=== PATIENT | female | born 1980 | race Caucasian/White ===

== ENCOUNTER 2018-06-01 10:39 | Emergency (ER) | payer OTHER, SELFPAY ==
[2018-06-01 10:41] VITALS: BP 130/67; PULSE 102; RESP 18; TEMP 36.6; O2SAT 99; BMI 24.7
--- NOTE | 2018-06-01 10:57 | RAD_ITS ---
STUDY: X-RAY - LUMBAR SPINE REASON FOR EXAM: Female, 37 years old. Patient fell last week. Low back pain radiating to the left leg. TECHNIQUE: 3 view(s) of the lumbar spine were obtained. COMPARISON: None FINDINGS: There is straightening of the normal lumbar lordosis. There is no substantial scoliosis. There is a normal alignment of the vertebrae. There is multilevel endplate spondylosis of the lumbar vertebrae. The vertebral heights are within normal limits. There are Schmorl's nodes in the superior endplates at all levels. Normal disc space heights. There is no demonstrated fracture. There is no demonstrated spondylolysis of the pars interarticulares. The soft tissue structures are unremarkable. RAD/Lumbar Spine 2 or 3 Views IMPRESSION: 1. Straightening of the lumbar spine which could be due to muscle spasm. 2. Schmorl's nodes at multiple levels. 3. No demonstrated acute fracture. Electronically Signed: Asaf Walker MD at 11:22 EST Tel , Service support ,
[2018-06-01] MEDS: Acetaminophen 500 MG Tablet 1000 MG PO (11:02)
--- NOTE | 2018-06-01 12:21 | ED.VISSUMM ---
- ER Visit Summary Date of Service: 06/01/18 Chief Complaint: Back pain History of Present Illness: The patient is a 37 F with back pain that started 1.5 weeks ago. The patient stepped down from a curb and slipped. She complains of left back pain down into her left calf. Worse with certain positions after sleeping and standing. Pain is severe at times. No bowel or bladder symptoms. No weakness or numbness. Physical Examination: Afebrile and vital signs unremarkable except for heart rate of 102. Alert and oriented. Appears uncomfortable but not toxic or in distress. Lumbar spine is tender to palpation over the left side. Straight leg raise negative. Good strength and sensation. Test Results: X-rays show straightening of the lumbar spine concerning for spasm. She also has Schmorl's nodes and no fracture was noted. Emergency Department Course and Treatment: Patient treated with Tylenol as she is driving and has an hour anti-inflammatory drugs. X-rays as above. She may have a disc injury. She will be referred for outpatient follow-up. Muscle relaxers and pain medicine. Follow-up with primary care. Treatment Plan: As above Disposition: Discharge Impression: 1. Lumbar back pain This note was generated with [employer] software. It may contain incorrect words, spelling, and punctuation that were not noted in review of the chart prior to signing ED Disposition - Plan for ED Patient: Referrals: Tona Singh, SHERICE-C [Primary Care Provider] -
--- NOTE | 2018-06-01 12:25 | DCINST.ED_ITS ---
ED Disposition - Plan for ED Patient: Instructions: ED Sprain Strain Lumbar Prescriptions: Hydrocodone Bitart/Apap 5-325 [[place] 5MG-325MG] 1 tab PO Q6H PRN PRN 3 Days #10 tab PRN Reason: Pain Cyclobenzaprine [Flexeril] 10 mg PO TID PRN #20 tab PRN Reason: Muscle Spasm Referrals: Tona Singh, COPYING MACHINE MECHANIC-C [Primary Care Provider] -
[2018-06-01 12:43] VITALS: BP 121/77; PULSE 77; RESP 16; O2SAT 98
== END 2018-06-01 12:45 | disposition home or self-care (01) ==
LOC: ED 11:17
PROVIDERS: Emergency Provider Emergency Medicine; Family Provider Nurse Practitioner Family; PCP Nurse Practitioner Family
DX: M54.5 Low back pain (principal)
CPT/HCPCS: 72100; 99283

== ENCOUNTER 2018-12-29 12:46 | Emergency (ER) | payer OTHER, SELFPAY ==
[2018-12-29 12:46] VITALS: BP 151/111; PULSE 104; RESP 16; TEMP 35.9; O2SAT 96; BMI 23.0
--- NOTE | 2018-12-29 12:58 | CT_ITS ---
STUDY: CT ABDOMEN AND PELVIS WITHOUT CONTRAST REASON FOR EXAM: Female, 38 years old. Right lower quadrant pain. RADIATION DOSAGE (If Supplied By Facility): CTDIvol = ( 6.06 ) mGy, DLP = ( 276.88 ) mGycm TECHNIQUE: Transaxial images were obtained from the dome of the diaphragm to the symphysis pubis without oral contrast, and without intravenous contrast. Sagittal and coronal images were reconstructed. Individualized dose optimization techniques were used for this CT. COMPARISON: Comparison is made with prior study July 15, 2015. FINDINGS: Minimal degree of dependent bibasilar atelectasis. The visualized portions of the heart are within normal limits. Normal liver. Normal gallbladder and extrahepatic biliary system. Normal spleen. Normal pancreas. Normal bilateral adrenal glands. Normal right kidney. Normal left kidney. Normal visualized stomach. Normal small intestine. Scattered right colonic diverticula. Inspissated barium is seen in 2 diverticula in the right hemicolon. Multiple small lymph nodes are seen in the mesentery in the right lower quadrant this may represent mesenteric metastases. The appendix is visualized and appears normal. There is scattered atherosclerotic calcification of the abdominal aorta, without a demonstrated aneurysm. Normal inferior vena cava. Normal retroperitoneum. Normal urinary bladder. There is absence of the uterus consistent with a prior hysterectomy. Calcified phleboliths are seen in the pelvis. There is a small umbilical hernia containing fat. Normal osseous structures. CT/Abdomen/Pelvis without Cont IMPRESSION: Scattered diverticula in the right hemicolon. Mesenteric adenitis in the right lower quadrant. Electronically Signed: Lavell Deng, at 13:53 EDT , Service support ,
[2018-12-29 13:25] LABS: Absolute Lymphocyte Count 2.43 X10^3/uL (0.83-4.51); Basophil# 0.06 X10^3/uL; Basophil% 0.5 % (0-1); Eosinophil# 0.04 X10^3/uL; Eosinophils% 0.3 % (0-5); Hematocrit 43.5 % (37-47); Hemoglobin 14.9 g/dL (12.0-15.0); Lymphocyte # 2.43 X10^3/ul (4.0); Mean Corp Hgb Conc 34.3 g/dL (32-36); Mean Corpuscular Hgb 30.8 pg (27.0-32.0); Mean Corpuscular Volume 89.9 fL (81-99); Mean Platelet Vol. 9.3 fl (6.2-12.0); Monocyte# 0.52 X10^3/uL; Monocyte% 4.3 % (0-10); NRBC Flagged by Analyzer 0 % (0-5); Neutrophil # 9.03 X10^3/uL (2.7-7.7); Neutrophil % 74.6 % (47-70); Platelet Count 290 K/mm3 (150-450); RBC Distribution Width CV 12.8 % (11.6-14.6); Red Blood Count 4.84 M/mm3 (4.2-5.4); White Blood Count 12.1 K/mm3 (4.4-11.0)
[2018-12-29 13:33] LABS: BUN 9 mg/dL (7-18); Creatinine, Serum 0.75 mg/dL (0.55-1.02); Glucose 156 mg/dL (74-106)
[2018-12-29 13:34] LABS: Anion Gap 6 (5-15); Calcium,Total 9.5 mg/dL (8.5-10.1); Chloride 108 mmol/L (98-107); EST Glomerular Filtration Rate 92 mL/min (>60); Est Glom Filt Rate - Afr Amer 112 mL/min (>60); Estimated Creatinine Clearance 84.13 ml/min; Potassium 3.6 mmol/L (3.5-5.1); Sodium Level 139 mmol/L (136-145)
[2018-12-29] MEDS: 0.9% Normal Saline 1,000 ML 125 ML IV (14:46)
[2018-12-29] MEDS: Ketorolac 30 MG/ML Syringe IV (14:46)
[2018-12-29 14:50] LABS: Bacteria 0 SEEN /hpf (None Seen); Mucous, Urine 0 SEEN /hpf (<or=2+); Red Blood Cells-Urine 0 SEEN /hpf (0-5); White Blood Cells 0 SEEN /hpf (0-5)
[2018-12-29 14:53] LABS: Color, Urine Yellow (Yellow); Glucose, Dipstick Normal (Normal); Ketone-Dipstick Negative (Negative); Leukocyte Esterase-Dipstick Negative /ul (Negative); Nitrite-Dipstick Negative (Negative); Occult Blood-Urine 50 /ul (Negative); Protein-Dipstick Negative (Negative); Specific Gravity, Urine 1.005 (1.002-1.030); Urine Bilirubin Dipstick Negative (Negative); Urine Clarity Clear (Clear); Urine Urobilinogen Normal (Normal)
[2018-12-29 14:59] LABS: Squamous Epithelial Cells - UA 0-5 SEEN /hpf (5-10)
--- NOTE | 2018-12-29 15:16 | ED.DCSUM_ITS ---
- ER Visit Summary Date of Service: 12/29/18 Chief Complaint: [Abdominal pain] History of Present Illness: The patient is a 38 F [presents to the emergency department complaint of abdominal pain for the last 5 months. Patient states that she initially had the pain 5 months ago and lasted about 24 hours and then resolved. Patient started having more pain again yesterday and has been relatively intermittent and lasts about a minute at a time. Patient describes it as sharp and stabbing. Patient also will have pain into her back at times. Patient states that is worse with walking. She had no nausea or vomiting. She denies any diarrhea. She denies any blood in her stool or black tarry stool. Patient's had prior appendectomy as well as hysterectomy and she believes that she still has 1 of her ovaries but is not sure which side.] Physical Examination: [HEENT-PERRLA, EOMI. Cranial nerves II through XII grossly intact. TMs clear. Mucous membranes moist. No adenopathy. Cardiovascular-regular rate and rhythm without murmur or ectopy Lungs-clear to auscultation, chest wall stable without crepitus or subcu emphysema Abdomen-normoactive bowel sounds, soft. Patient has tenderness palpation over the right lower abdomen into the right lower pelvis. There is no masses palpated. No rebound, rigidity, cranial signs. Patient has some mild CVA tenderness on the right. Extremities-intact ?4, normal range of motion, normal pulses, atraumatic] Test Results: [CBC with differential shows a white count 12.1, hemoglobin 14.9, hematocrit 43.5, placed 290. Chemistries unremarkable. Urinalysis was normal. CT scan of the abdomen pelvis without contrast showed mesenteric adenitis to the right lower quadrant otherwise nothing significant.] Emergency Department Course and Treatment: [She was medicated with Toradol 30 mill grams IV which really seem to improve her discomfort.] Treatment Plan: [Advised use ibuprofen or Tylenol for discomfort. Patient to follow-up with her primary care physician or PAYROLL AUDITOR within next 3 to 5 days. Patient advised to return if worsening pain, fever, vomiting, or conditions worsen anyway.] Disposition: [Discharged home in stable condition.] Impression: [Abdominal pain-etiology uncertain Mesenteric adenitis] This note was generated with [employer] software. It may contain incorrect words, spelling, and punctuation that were not noted in review of the chart prior to signing ED Disposition - Plan for ED Patient: Referrals: Tona Singh, DRUM REEL CUTTER-C [Primary Care Provider] -
--- NOTE | 2018-12-29 15:19 | ED.DEP ---
ED Disposition - Plan for ED Patient: Instructions: ABDOMINAL PAIN, Unknown Cause, (Female), Adenitis, Mesenteric Referrals: Tona Singh NP-[facility] [Primary Care Provider] - Onofre Webster MD [STAFF PHYSICIAN] - 3-5 Days
[2018-12-29 15:30] VITALS: BP 129/74; PULSE 61; RESP 15; O2SAT 98
== END 2018-12-29 15:31 | disposition home or self-care (01) ==
LOC: ED 13:31
PROVIDERS: Emergency Provider Emergency Medicine; Family Provider Nurse Practitioner Family; PCP Nurse Practitioner Family
DX: I88.0 Nonspecific mesenteric lymphadenitis (principal); R10.31 Right lower quadrant pain; Z72.0 Tobacco use
CPT/HCPCS: 74176; 80048; 81001; 85025; 96361; 96374; 99283; J7030; A4216

== ENCOUNTER 2019-01-15 11:50 | Emergency (ER) | payer OTHER, SELFPAY ==
[2019-01-15 11:50] VITALS: BP 127/76; PULSE 83; RESP 17; TEMP 36.7; O2SAT 99; BMI 23.8
[2019-01-15] MEDS: Ketorolac 60 MG/2 ML Vial IM (13:19)
--- NOTE | 2019-01-15 14:25 | ED.DEP ---
ED Disposition - Plan for ED Patient: Instructions: Neck Sprain/Strain Prescriptions: cycloBENZAPRine HCl [Flexeril] 10 mg PO TID PRN #20 tablet PRN Reason: Muscle Spasm Referrals: Tona Singh NP-C [Primary Care Provider] -
--- NOTE | 2019-01-15 14:31 | ED.DCSUM_ITS ---
- ER Visit Summary Date of Service: 01/15/19 Chief Complaint: Right-sided neck and shoulder pain History of Present Illness: The patient is a 38 F presenting with right-sided neck and right shoulder pain. This started yesterday. Patient does not recall a specific injury. She states she does a lot of heavy lifting at work. She also played baseball on Tuesday with her son. She tried ibuprofen at home. Denies other complaints. Physical Examination: Vitals are stable. Patient is afebrile. Alert no acute distress. HEENT exam is unremarkable. Neck is right paraspinal cervical muscle tenderness, no midline tenderness Lungs are clear and equal bilaterally. Heart is regular rate and rhythm. Abdomen is soft nontender nondistended. Extremities right posterior shoulder tenderness. Active full range of motion Skin is warm and dry. No focal neurologic deficit. Normal strength and sensation Remainder of exam is unremarkable. Emergency Department Course and Treatment: Patient was given Toradol IM. Given a prescription for Flexeril. She is advised to follow with her primary care physician. Advised return the ED if worsening complaints. Disposition: Discharge home Impression: Neck strain, right shoulder sprain This note was generated with [employer] dictation software. It may contain incorrect words, spelling, and punctuation that were not noted in review of the chart prior to signing ED Disposition - Plan for ED Patient: Instructions: Neck Sprain/Strain Prescriptions: cycloBENZAPRine HCl [Flexeril] 10 mg PO TID PRN #20 tab PRN Reason: Muscle Spasm Prescription Printed Referrals: Tona Singh, SHERICE-C [Primary Care Provider] -
[2019-01-15 14:41] VITALS: RESP 18
== END 2019-01-15 14:43 | disposition home or self-care (01) ==
LOC: ED 13:16
PROVIDERS: Emergency Provider Emergency Medicine; Family Provider Nurse Practitioner Family; PCP Nurse Practitioner Family
DX: S16.1XXA Strain of muscle, fascia and tendon at neck level, initial encounter (principal); S43.401A Unspecified sprain of right shoulder joint, initial encounter; Z72.0 Tobacco use; X58.XXXA Exposure to other specified factors, initial encounter; Y93.89 Activity, other specified; Y92.89 Other specified places as the place of occurrence of the external cause; Y99.8 Other external cause status
CPT/HCPCS: 96372; 99282

== ENCOUNTER 2021-12-17 16:49 | Emergency (ER) | payer OTHER, MEDICAID, SELFPAY ==
[2021-12-17 16:50] VITALS: BP 140/79; PULSE 77; RESP 14; TEMP 36.9; O2SAT 99; BMI 26.5
--- NOTE | 2021-12-17 17:15 | EX.ED.DYSGE1 ---
HPI <SYDNI Rangel - Last Filed: 12/17/21 17:20> History of Present Illness Chief Complaint: Dental Narrative Narrative: 41-year-old female presents to the emergency department with 2 to 3 days of left lower jaw pain following a fractured tooth. Patient states that she was eating something when she fractured her tooth last week. Over the last 2 to 3 days, the pain is getting worse, she is having worsening pain in her gums lower jaw all the way up to her ear. Patient did call her dentist however she has no appointment open until later in the month. Patient states due to the pain, she is here for evaluation. Denies any fevers or chills. Denies any drainage. PFSH <SYDNI Rangel - Last Filed: 12/17/21 17:20> PFSH Medical History no medical history Home Medications cyclobenzaprine 10 mg tablet 10 mg PO TID PRN Muscle Spasm #20 tabs 01/15/19 [Rx Last Taken Unknown] ibuprofen 600 mg tablet 600 mg PO Q6H PRN PRN pain #20 tabs 12/17/21 [Rx Last Taken Unknown] oxycodone-acetaminophen 5 mg-325 mg tablet (Percocet) 1 tab PO Q6H PRN pain 3 days #8 tabs 12/17/21 [Rx Last Taken Unknown] penicillin V potassium 500 mg tablet 500 mg PO 4X/DAY 7 days #28 tabs 12/17/21 [Rx Last Taken Unknown] Allergy/AdvReac Type Severity Reaction Status Date / Time naproxen Allergy Shortness Verified 01/15/19 11:50 of breath Social History (Updated 05/10/19 @ 16:22 by Marco EATON, PA) Smoking Status: Current every day smoker tobacco type: cigarettes ROS <SYDNI Rangel - Last Filed: 12/17/21 17:20> ROS ED ROS Narrative Constitutional: Negative for fever, weight loss, weakness. Positive for chills Eyes: Negative for vision loss, vision change, double vision ENT: Negative for any sore throat, ear pain, congestion. Positive for left lower jaw pain Cardiovascular: Negative for any chest pain, tightness, palpitations Respiratory: Negative for any cough, sputum production, hemoptysis, dyspnea, dyspnea on exertion, orthopnea Gastrointestinal: Negative for any abdominal pain, nausea, vomiting, diarrhea, constipation, blood in stool, blood in vomit : Negative for any urinary frequency, dysuria, retention, blood in urine Muscle skeletal: Negative for any muscle joint pain, stiffness, myalgias, arthralgias, neck pain, back pain Neurological: Negative for any headache, syncope, numbness or tingling, dizziness Skin: Negative for any rashes, lumps, itching, abrasions, lacerations Psychiatric: Negative for any depression, anxiety, stress, suicidal ideation, homicidal ideation Hematologic: Negative for any easy bruising, excessive bruising, easy bleeding Allergies: Negative for any eczema, hives, rash EXAM <SYDNI Rangel - Last Filed: 12/17/21 17:20> Physical Exam Narrative Exam Narrative: Vital signs reviewed. HEET: Head normocephalic atraumatic, TMs clear bilaterally. Posterior pharynx is clear, moist mucous membranes. Nares clear bilaterally. Patient does have slightly poor dentition, patient does have a fractured premolar the left lower jaw, there is no evidence of fluctuation, no evidence of abscess. There is no active drainage. Neck: Supple with no lymphadenopathy or tenderness. No signs of meningismus, negative jolt sign. Cardiac: Regular rate and rhythm no murmurs gallops or rubs, equal peripheral pulses bilaterally. Respiratory: Lungs clear to auscultation bilaterally. No chest tenderness. Abdomen: Soft, nontender, nondistended. No abdominal bruit or pulsatile masses. No hepatosplenomegaly Extremities: No peripheral edema, no signs of gross trauma or deformity. Active full range of motion of all extremities. Neuro: Cranial nerves II through XII intact, no focal neurological deficits. Skin: Clean dry and intact with no rash, purpura, petechiae, vesicles or pustules. Backs/flank: No CVA tenderness, no midline spinal tenderness, no deformity. Psych: Normal mood and affect. No SI, HI or acute psychosis. Const Vital Signs: 12/17/21 16:50 Temperature 98.4 F Temperature Source Temporal Pulse Rate 77 Respiratory Rate 14 Blood Pressure 140/79 H Blood Pressure Mean 99 Pulse Ox 99 Oxygen Delivery Method Room Air <Dr. Daniel Bautista MD - Last Filed: 12/17/21 17:53> Physical Exam Const Vital Signs: 12/17/21 16:50 Temperature 98.4 F Temperature Source Temporal Pulse Rate 77 Respiratory Rate 14 Blood Pressure 140/79 H Blood Pressure Mean 99 Pulse Ox 99 Oxygen Delivery Method Room Air [facility] <SYDNI Rangel - Last Filed: 12/17/21 17:20> [facility] Treatment and Re-Evaluation Narrative: Patient appears well, patient appears nontoxic, vital signs are stable. Patient presents to the emergency department with complaints of left lower jaw pain from a broken premolar. Patient's physical examination is consistent with dental caries, patient does have a fractured tooth, she was given a dental referral list here. She will be given a prescription for Percocet, ibuprofen, Pen-Vee K. She instructed take the entire dose of the antibiotics and through the pill bottle away empty. Patient verbally understands the importance of follow-up. Struck to return for any worsening symptoms. <Dr. Daniel Bautista MD - Last Filed: 12/17/21 17:53> [facility] Narrative Medical decision making narrative: I have personally performed a face to face assessment of the patient and have reviewed the SHIVAM Note. I performed a substantive portion of the visit including all aspects of the following. My uribe findings include: History is remarkable for dental pain involving tooth #20 and 21. She fractured her tooth a while ago. She presents with pain. Pain is worse with cold and hot liquids. She denies fever, chills night sweats. She denies inability to open or close her mouth completely. She denies history of medic fever, heart murmur, SBE or being immune suppressed. She denies change in voice. Denies difficulty swallowing. Exam is patient has significant dental pathology. Tooth #20 and 21 are significantly diseased with caries involving the pulp. There is evidence of periodontal disease as well as gingivitis. There may be slight facial swelling. There is no trismus. There is no evidence of Ludewig's angina. Trachea is midline. There is no inspiratory stridor. Heart is regular. There is no murmur, gallop or rub. Rate is normal. There is no into facial cellulitis. Medical Decision Making patient has evidence of dental infection as well as irreversible pulpitis. Patient was treated with pain medicine, antibiotics and referred to dentist Other additions or changes: None Discharge Plan Triage Chief Complaint: Dental ED Midlevel Provider: Frantz Bowden ED Provider: Bautista,Daniel Dx/Rx/DC Orders Clinical Impression: Abscess, apical, Fracture of tooth, Dental caries extending into pulp, Chronic periodontal disease, Gingivitis Instructions: Dental Trauma, Understanding Tooth Decay Prescriptions: New penicillin V potassium 500 mg tablet 500 mg PO 4X/DAY 7 Days Qty: 28 0RF oxycodone-acetaminophen [Percocet] 5-325 mg tablet 1 tab PO Q6H PRN (Reason: pain) 3 Days Qty: 8 0RF ibuprofen 600 mg tablet 600 mg PO Q6H PRN PRN (Reason: pain) Qty: 20 0RF No Action cyclobenzaprine 10 MG tablet 10 mg PO TID PRN (Reason: Muscle Spasm) Qty: 20 0RF Primary Care Provider: Tona Singh NP Referrals: Tona Singh NP, STEAM SERVICE INSPECTOR-C [Primary Care Provider] - Activity Restrictions/Additional Instructions: You need to follow-up with your dentist, use a dental referral list. Disposition Disposition: Home, Self Care Discharge Date/Time: 12/17/21 17:31
== END 2021-12-17 17:31 | disposition home or self-care (01) ==
PROVIDERS: Emergency Provider Emergency Medicine; PCP Nurse Practitioner Family; Visit Provider Emergency Medicine
DX: S02.5XXA Fracture of tooth (traumatic), initial encounter for closed fracture (principal); K05.10 Chronic gingivitis, plaque induced; K04.02 Irreversible pulpitis; K02.9 Dental caries, unspecified; R68.84 Jaw pain; K05.6 Periodontal disease, unspecified; F17.210 Nicotine dependence, cigarettes, uncomplicated; X58.XXXA Exposure to other specified factors, initial encounter
CPT/HCPCS: 99281

== ENCOUNTER 2023-01-01 15:28 | Emergency (ER) | payer OTHER, MEDICAID, SELFPAY ==
[2023-01-01 15:29] VITALS: BP 160/96; PULSE 78; RESP 16; TEMP 36.1; O2SAT 100; BMI 25.0
--- NOTE | 2023-01-01 16:41 | CT_ITS ---
STUDY: CT ABDOMEN AND PELVIS WITHOUT CONTRAST REASON FOR EXAM: Female, 42 years old. Pain-BILATERAL FLANK PAIN, PRIOR HYSTERECTOMY RADIATION DOSAGE (If Supplied By Facility): CTDIvol = ( 6.10 ) mGy, DLP = ( 286.72 ) mGycm TECHNIQUE: Transaxial images were obtained from the dome of the diaphragm to the symphysis pubis without oral contrast, and without intravenous contrast. Sagittal and coronal images were reconstructed. Individualized dose optimization techniques were used for this CT. COMPARISON: None. FINDINGS: The visualized lung bases are unremarkable. The visualized portions of the heart are within normal limits. Normal liver. Contracted gallbladder. Normal spleen. Normal pancreas. Normal bilateral adrenal glands. Normal right kidney. Normal left kidney. Normal visualized stomach. Normal small intestine. Normal colon. The appendix is visualized and appears normal. There is diffuse atherosclerotic calcification of the abdominal aorta, without a demonstrated aneurysm. Normal inferior vena cava. Normal retroperitoneum. Normal urinary bladder. There is a small umbilical hernia containing fat. Normal osseous structures. CT/Abdomen/Pelvis without Cont IMPRESSION: No hydronephrosis or urinary tract calcifications. Electronically Signed: Terrance Cortez MD ([place]) at 17:31 EDT Reading Location ID and State: [facility] / [place] , Service support ,
--- NOTE | 2023-01-01 16:43 | EDS_ITS ---
<Statement entered by Frantz Foster MD - 01/01/23 21:31> I have personally performed a face to face assessment of the patient and have reviewed the SHIVAM Note. HPI History of Present Illness Chief Complaint: Flank Pain Narrative Narrative: Patient is a 42-year-old female with history of hypothyroidism, chronic kidney disease who presents the emergency department with left-sided flank pain. Patient dates her lower back has been hurting for the last 3 to 4 days. She was at work today, doing some manual labor, pulling and pushing when she developed significant pain in the left flank pain that radiates to her left abdomen. She is unsure if she had a muscle strain or she has a kidney stone. She denies any fever or chills. She denies any difficulty urinating. She states she takes Tylenol however this does not help. [facility] Medical History (Updated 01/01/23 @ 18:10 by MIHCAELA RangelC) Anemia CKD (chronic kidney disease) Hypothyroidism Home Medications cyclobenzaprine 10 mg tablet 10 mg PO TID PRN Muscle Spasm #20 tabs 01/15/19 [Rx Last Taken Unknown] ibuprofen 600 mg tablet 600 mg PO Q6H PRN PRN pain #20 tabs 12/17/21 [Rx Last Taken Unknown] oxycodone-acetaminophen 5 mg-325 mg tablet (Percocet) 1 tab PO Q6H PRN pain 3 days #8 tabs 12/17/21 [Rx Last Taken Unknown] penicillin V potassium 500 mg tablet 500 mg PO 4X/DAY 7 days #28 tabs 12/17/21 [Rx Last Taken Unknown] cyclobenzaprine 10 mg tablet 10 mg PO TID PRN Muscle Spasm #12 TABLETS 01/01/23 [Rx Last Taken Unknown] Allergy/AdvReac Type Severity Reaction Status Date / Time naproxen Allergy Shortness Verified 01/01/23 15:29 of breath Social History (Updated 05/10/19 @ 16:22 by UMA Mccloud) Smoking Status: Heavy Smoker (>10/day) ROS ROS ED ROS Narrative Constitutional: Negative for fever, chills, weight loss, weakness Eyes: Negative for vision loss, vision change, double vision ENT: Negative for any sore throat, ear pain, congestion Cardiovascular: Negative for any chest pain, tightness, palpitations Respiratory: Negative for any cough, sputum production, hemoptysis, dyspnea, dyspnea on exertion, orthopnea Gastrointestinal: Negative for any vomiting, diarrhea, constipation, blood in stool, blood in vomit. Positive left lower abdominal pain : Negative for any urinary frequency, dysuria, retention, blood in urine Muscle skeletal: Negative for any muscle joint pain, stiffness, myalgias, arthralgias, neck pain. Positive for left flank pain Neurological: Negative for any headache, syncope, numbness or tingling, dizziness Skin: Negative for any rashes, lumps, itching, abrasions, lacerations Psychiatric: Negative for any depression, anxiety, stress, suicidal ideation, homicidal ideation Hematologic: Negative for any easy bruising, excessive bruising, easy bleeding Allergies: Negative for any eczema, hives, rash EXAM Physical Exam Narrative Exam Narrative: Vital signs reviewed. HEET: Head normocephalic atraumatic, TMs clear bilaterally. Posterior pharynx is clear, moist mucous membranes. Nares clear bilaterally. Neck: Supple with no lymphadenopathy or tenderness. No signs of meningismus, negative jolt sign. Cardiac: Regular rate and rhythm no murmurs gallops or rubs, equal peripheral pulses bilaterally. Respiratory: Lungs clear to auscultation bilaterally. No chest tenderness. Abdomen: Soft, nondistended. No abdominal bruit or pulsatile masses. No hepatosplenomegaly. Slight tenderness from the left flank to the left abdomen. Extremities: No peripheral edema, no signs of gross trauma or deformity. Active full range of motion of all extremities. No neurological focal deficit. Neuro: Cranial nerves II through XII intact, no focal neurological deficits. Skin: Clean dry and intact with no rash, purpura, petechiae, vesicles or pustules. Backs/flank: positive for left-sided CVA tenderness, no midline spinal tenderness, no deformity. Psych: Normal mood and affect. No SI, HI or acute psychosis. Const Vital Signs: 01/01/23 15:29 01/01/23 17:15 Temperature 97 F L Temperature Source Temporal Pulse Rate 78 84 Respiratory Rate 16 16 Blood Pressure 160/96 H 155/86 H Blood Pressure Mean 117 109 Pulse Ox 100 99 Oxygen Delivery Method Room Air Room Air [facility] Lab Data Labs: Laboratory Results - last 24 hr 01/01/23 01/01/23 16:35 17:00 WBC 11.8 H RBC 4.84 Hgb 14.8 Hct 44.7 MCV 92.4 MCH 30.6 MCHC 33.1 RDW Std Deviation 46.1 H RDW Coeff of Tia 13.5 Plt Count 332 MPV 9.0 Immature Gran % (Auto) 0.300 Neut % (Auto) 59.1 Lymph % (Auto) 32.4 Ware % (Auto) 5.3 Eos % (Auto) 1.8 Baso % (Auto) 1.1 H Absolute Neuts (auto) 7.0 Absolute Lymphs (auto) 3.82 Nucleated RBC % 0 Sodium 138 Potassium 3.9 Chloride 105 Carbon Dioxide 28.0 Anion Gap 5 BUN 9 Creatinine 0.68 Estim Creat Clear Calc 89.15 Est GFR (MDRD) Af Amer 122 Est GFR (MDRD) Non-Af 101 BUN/Creatinine Ratio 13.3 Glucose 85 Calcium 9.4 Urine Color Yellow Urine Clarity Clear Urine pH 6.5 Ur Specific [place] 1.010 Urine Protein Negative Urine Glucose (UA) Normal Urine Ketones Negative Urine Occult Blood 50 H Urine Nitrite Negative Urine Bilirubin Negative Urine Urobilinogen Normal Ur Leukocyte Esterase Negative Urine RBC 0-5 SEEN Urine WBC 0 SEEN Ur Squamous Epith Cells 0 SEEN Urine Bacteria 1+ Urine Mucus 0 SEEN Urine Test Negative Radiography Diagnostic Testing: Clinical Impression(s) from Imaging Studies Abdomen/Pelvis CT 01/01/23 16:41 IMPRESSION: No hydronephrosis or urinary tract calcifications. Electronically Signed: Terrance Cortez MD (Brooks) at 17:31 EDT Reading Location ID and State: [address] [place] [address] , Service support , Treatment and Re-Evaluation :: Patient appears to be in mild discomfort secondary to left-sided back pain. Patient presents to the emergency department with left sided back pain that raise to her left abdomen. Physical examination concerning for a muscle skeletal strain versus obstructing uropathy. Patient received a CT scan of the abdomen pelvis without contrast concerning for any obstructing stone. This will also show the lumbar sacral spine. Patient be given IV fluids IV Zofran, IV morphine for pain. Laboratory values will be completed as well as urinalysis concerning for any infection, blood in the urine, to look at the patient's kidney function. Patient reevaluation was feeling better after IV pain medicine. Patient's laboratory values showed normal CBC, patient's chemistries were unremarkable. Urinalysis showed slight blood however no nitrates, negative for leukocytes 1+ bacteria. Patient CT scan concerning for any obstructing uropathy showed that there is a small umbilical hernia containing fat normal osseous structures. No hydronephrosis or urinary tract calcifications. At this time, physical examination is well as testing is consistent with muscle skeletal strain. Patient will be diagnosed with lumbar strain. She will be given 3 days of time off work. She will be given muscle relaxers. Patient will continue to ice and elevate. She used Tylenol. All questions answered, she was given return precaution. Patient stable for discharge. Discharge Plan Triage Chief Complaint: Flank Pain ED Midlevel Provider: Frantz Bowden ED Provider: Frantz Foster Dx/Rx/DC Orders Clinical Impression: Acute lumbar myofascial strain Instructions: Treating?Strains and Sprains, Understanding Lumbosacral Strain Prescriptions: New cyclobenzaprine 10 mg tablet 10 mg PO TID PRN (Reason: Muscle Spasm) Qty: 12 0RF No Action cyclobenzaprine 10 MG tablet 10 mg PO TID PRN (Reason: Muscle Spasm) Qty: 20 0RF penicillin V potassium 500 mg tablet 500 mg PO 4X/DAY 7 Days Qty: 28 0RF oxycodone-acetaminophen [Percocet] 5-325 mg tablet 1 tab PO Q6H PRN (Reason: pain) 3 Days Qty: 8 0RF ibuprofen 600 mg tablet 600 mg PO Q6H PRN PRN (Reason: pain) Qty: 20 0RF Stand Alone Forms: ED Work / School Excuse Primary Care Provider: Tona Singh NP Referrals: Tona Singh NP, [employer] [Primary Care Provider] - Activity Restrictions/Additional Instructions: Continue to perform gentle stretching, ice and heat. Disposition Disposition: Home, Self Care Discharge Date/Time: 01/01/23 18:25
[2023-01-01] MEDS: 0.9% Normal Saline (1000mL) 1,000 ML 1000 ML IV (16:50)
[2023-01-01 16:53] LABS: Absolute Lymphocyte Count 3.82 X10^3/uL (0.83-4.51); Basophil# 0.13 X10^3/uL; Basophil% 1.1 % (0-1); Eosinophil# 0.21 X10^3/uL; Eosinophils% 1.8 % (0-5); Hematocrit 44.7 % (37-47); Hemoglobin 14.8 g/dL (12.0-15.0); Lymphocyte # 3.82 X10^3/ul (0.83-4.51); Lymphocyte % 32.4 % (19-41); Mean Corp Hgb Conc 33.1 g/dL (32-36); Mean Corpuscular Hgb 30.6 pg (27.0-32.0); Mean Corpuscular Volume 92.4 fL (81-99); Monocyte# 0.62 X10^3/uL; Monocyte% 5.3 % (0-10); NRBC Flagged by Analyzer 0 % (0-5); Neutrophil # 6.99 X10^3/uL (2.7-7.7); Neutrophil % 59.1 % (47-70); Platelet Count 332 K/mm3 (150-450); RBC Distribution Width CV 13.5 % (11.6-14.6); RBC Distribution Width SD 46.1 fl (35.1-43.9); Red Blood Count 4.84 M/mm3 (4.2-5.4); White Blood Count 11.8 K/mm3 (4.4-11.0)
[2023-01-01 17:06] LABS: Mucous, Urine 0 SEEN /hpf (<or=2+); Squamous Epithelial Cells - UA 0 SEEN /hpf (5-10); White Blood Cells 0 SEEN /hpf (0-5)
[2023-01-01 17:08] LABS: Anion Gap 5 (5-15); BUN 9 mg/dL (7-18); BUN/Creat Ratio 13.3 RATIO (10-20); Calcium,Total 9.4 mg/dL (8.5-10.1); Chloride 105 mmol/L (98-107); Creatinine, Serum 0.68 mg/dL (0.55-1.02); EST Glomerular Filtration Rate 101 mL/min (>60); Est Glom Filt Rate - Afr Amer 122 mL/min (>60); Estimated Creatinine Clearance 89.15 ml/min; Glucose 85 mg/dL (74-106); Potassium 3.9 mmol/L (3.5-5.1); Sodium Level 138 mmol/L (136-145)
[2023-01-01 17:13] LABS: Glucose, Dipstick Normal (Normal); Ketone-Dipstick Negative (Negative); Leukocyte Esterase-Dipstick Negative /ul (Negative); Nitrite-Dipstick Negative (Negative); Occult Blood-Urine 50 /ul (Negative); Protein-Dipstick Negative (Negative); Urine Bilirubin Dipstick Negative (Negative); Urine Urobilinogen Normal (Normal); Urine pH 6.5 (5.0 - 8.0)
[2023-01-01 17:15] VITALS: BP 155/86; PULSE 84; RESP 16; O2SAT 99
[2023-01-01 17:17] LABS: Color, Urine Yellow (Yellow); Urine Clarity Clear (Clear)
[2023-01-01 17:20] LABS: Bacteria 1+ /hpf (None Seen); Internal QC Validated? YES +Cl - CLEAR BKGD; Pregnancy, Urine Negative Negative; Record Kit Lot#,Urine Preg 667200; Red Blood Cells-Urine 0-5 SEEN /hpf (0-5)
[2023-01-01] MEDS: Morphine 4 MG/ML Syringe IV (17:20)
[2023-01-01] MEDS: Ondansetron 4 MG/2 ML Vial IV (17:20)
[2023-01-01 18:17] VITALS: BP 120/85; PULSE 65; RESP 14; O2SAT 100
== END 2023-01-01 18:25 | disposition home or self-care (01) ==
PROVIDERS: Nurse Practitioner; Emergency Provider Emergency Medicine; PCP Nurse Practitioner Family; Visit Provider Emergency Medicine
DX: S39.012A Strain of muscle, fascia and tendon of lower back, initial encounter (principal); F17.200 Nicotine dependence, unspecified, uncomplicated; N18.9 Chronic kidney disease, unspecified; X58.XXXA Exposure to other specified factors, initial encounter
CPT/HCPCS: 74176; 80048; 81001; 81025; 85025; 96361; 96374; 96375; 99283; J2405

== ENCOUNTER → 2024-12-03 | Outpatient (CLI) | payer OTHER, MEDICAID, SELFPAY ==
[2024-12-03 12:00] LABS: Color, Urine Yellow (Yellow); Glucose, Dipstick Normal (Normal); Ketone-Dipstick Negative (Negative); Leukocyte Esterase-Dipstick Negative /ul (Negative); Nitrite-Dipstick Negative (Negative); Occult Blood-Urine 25 /ul (Negative); Protein-Dipstick 15 mg/dl (Negative); Specific Gravity, Urine 1.010 (1.002-1.030); Urine Bilirubin Dipstick Negative (Negative)
[2024-12-03 12:01] LABS: Hematocrit 41.1 % (37-47); Hemoglobin 13.6 g/dL (12.0-15.0); Immature Granulocytes Count 0.030 X10^3/uL (0.0-0.0); Mean Corp Hgb Conc 33.1 g/dL (32-36); Mean Corpuscular Volume 93.2 fL (81-99); Mean Platelet Vol. 9.2 fl (6.2-12.0); NRBC Flagged by Analyzer 0 % (0-5); Platelet Count 361 K/mm3 (150-450); RBC Distribution Width CV 13.7 % (11.6-14.6); RBC Distribution Width SD 47.1 fl (35.1-43.9); Red Blood Count 4.41 M/mm3 (4.2-5.4); White Blood Count 9.1 K/mm3 (4.4-11.0)
[2024-12-03 12:40] LABS: AST(SGOT) 29 U/L (<=31); Alanine Aminotransfer ALT/SGPT 34 U/L (<=34); Albumin, Serum 4.3 g/dL (3.5-5.0); Alkaline Phosphatase 76 U/L (35-104); Anion Gap 12 (5-15); BUN 10 mg/dL (4-19); BUN/Creat Ratio 16.0 RATIO (10-20); Calcium,Total 9.2 mg/dL (7.6-11.0); Carbon Dioxide 23.8 mmol/L (21.0-32.0); Chloride 102 mmol/L (98-108); Globulin 2.9 g/dL (2.2-4.2); Glucose 94 mg/dL (70-99); Potassium 4.2 mmol/L (3.3-5.1)
[2024-12-03 13:07] LABS: Amylase 53 U/L (28-100); Lipase 30 U/L (13-75)
[2024-12-04 14:09] LABS: Anti-dsDNA Ab <1 IU/mL (0-9)
== END | disposition home or self-care (01) ==
LOC: MTLAB 10:13
PROVIDERS: PCP Nurse Practitioner Family; Referring Provider Physician Assistant; Visit Provider Physician Assistant
DX: M79.3 Panniculitis, unspecified (principal)
CPT/HCPCS: 36415; 80053; 81002; 82150; 83690; 85025; 86038; 86225; 87086; 87088